=== PATIENT | female | born 1985 | race Caucasian/White ===

== ENCOUNTER → 2017-09-11 | Outpatient (CLI) | payer OTHER | LOC: M SMT 10:01 | PROVIDERS: ATTEND Advanced Practice Midwife | DX: Z31.438 Encounter for other genetic testing of female for procreative management (principal) ==

== ENCOUNTER → 2017-10-02 | Outpatient (CLI) | payer OTHER | LOC: M LRY 08:31 | DX: Z36.89 Encounter for other specified antenatal screening (principal); Z3A.20 20 weeks gestation of pregnancy | CPT/HCPCS: 76811 ==

== ENCOUNTER → 2017-10-26 | Outpatient (CLI) | payer OTHER | LOC: M LRY 08:30 | DX: Z36.2 Encounter for other antenatal screening follow-up (principal); Z3A.22 22 weeks gestation of pregnancy ==

== ENCOUNTER → 2017-11-10 | Outpatient (CLI) | payer OTHER ==
[2017-11-10 14:34] LABS: HEMATOCRIT 36.6 % (36.0-47.0); HEMOGLOBIN 12.4 g/dl (12.0-16.0); MEAN CORPUSCULAR HEMOGLOBIN 31.6 pg (27.0-33.0); MEAN CORPUSCULAR HGB CONC 33.9 g/dl (32.0-36.5); MEAN CORPUSCULAR VOLUME 93.1 fl (80.0-96.0); PLATELET COUNT, AUTOMATED 222 10^3/uL (150-450); RED BLOOD COUNT 3.93 10^6/uL (4.00-5.40); RED CELL DISTRIBUTION WIDTH 12.5 % (11.5-14.5); WHITE BLOOD COUNT 8.2 10^3/uL (4.0-10.0)
[2017-11-10 15:06] LABS: GLUCOSE CHALLENGE TEST 1 HOUR 115 MG/DL (LESS THAN 140)
== END ==
LOC: M SMT 08:23
DX: Z34.82 Encounter for supervision of other normal pregnancy, second trimester (principal)

== ENCOUNTER → 2018-01-20 | Outpatient (REF) | payer OTHER | LOC: M LAB REF 13:06 | DX: Z34.83 Encounter for supervision of other normal pregnancy, third trimester (principal); Z3A.00 Weeks of gestation of pregnancy not specified | CPT/HCPCS: 87186 ==

== ENCOUNTER 2018-02-11 01:04 | Inpatient (IN) | payer OTHER ==
[2018-02-11] MEDS: LR 1,000 ML IV (03:07)
[2018-02-11] MEDS: PENICILLIN G POTASSIUM IV 5 MU in D5W MINI-BAG PLUS 100 ML IV (03:07)
[2018-02-11 03:29] LABS: HEMATOCRIT 36.9 % (36.0-47.0); HEMOGLOBIN 12.7 g/dl (12.0-15.5); MEAN CORPUSCULAR HEMOGLOBIN 31.7 pg (27.0-33.0); MEAN CORPUSCULAR HGB CONC 34.4 g/dl (32.0-36.5); PLATELET COUNT, AUTOMATED 208 10^3/uL (150-450); RED BLOOD COUNT 4.01 10^6/uL (4.00-5.40); RED CELL DISTRIBUTION WIDTH 12.9 % (11.5-14.5); WHITE BLOOD COUNT 19.8 10^3/uL (4.0-10.0)
[2018-02-11] MEDS ORDERED: OXYTOCIN 30 UNITS IN 0.9% NaCl 500ML IV BAG (J2590) As Ordered (03:44)
[2018-02-11] MEDS ORDERED: ACETAMINOPHEN 500 MG TAB As Ordered (04:07)
[2018-02-11] MEDS ORDERED: PENICILLIN G POTASSIUM IV 2.5 MU in APPROPRIATE DILUENT 1 EA IV (07:30)
[2018-02-11] MEDS ORDERED: DIBUCAINE 1% OINTMENT 30GM TOP (10:15)
[2018-02-11] MEDS ORDERED: MEASLES,MUMPS,RUBELLA VACCINE INJ (MMR-II) (90707) SC (10:15)
[2018-02-11] MEDS ORDERED: ONDANSETRON 4MG/2ML VIAL (J2405) IV (10:15)
[2018-02-11] MEDS ORDERED: METHYLERGONOVINE MALEATE 0.2 MG TAB PO (10:15)
[2018-02-11] MEDS ORDERED: RHOGAM 300 MCG (1500 IU) INJ (J2790) IM (10:15)
[2018-02-11] MEDS ORDERED: DOCUSATE SODIUM 100 MG CAP PO (10:15)
[2018-02-11] MEDS ORDERED: OXYTOCIN DRIP 30 UNITS in APPROPRIATE DILUENT 1 EA IV (10:30)
[2018-02-11] MEDS: IBUPROFEN 800 MG TAB PO ×2 (13:54→22:46)
[2018-02-11] MEDS: ACETAMINOPHEN 500 MG TAB PO (16:18)
[2018-02-12] MEDS: ACETAMINOPHEN 500 MG TAB PO ×2 (01:05→08:31)
[2018-02-12] MEDS: IBUPROFEN 800 MG TAB PO (06:38)
[2018-02-12] MEDS: PRENATAL VITAMINS CHEWABLE TABLET PO (08:30)
== END 2018-02-12 17:40 | disposition home or self-care (01) | DRG 775 ==
LOC: M LDO 01:04 → M LDI 02:56 → M OBS 08:14
PROVIDERS: Obstetrics & Gynecology
PROC: 10E0XZZ Delivery of Products of Conception, External Approach (ICD-10-PCS; principal; 2018-02-11)
DX: O99.824 Streptococcus B carrier state complicating childbirth (principal); Z3A.39 39 weeks gestation of pregnancy; O69.82X0 Labor and delivery complicated by other cord entanglement, without compression, not applicable or unspecified; Z37.0 Single live birth

== ENCOUNTER → 2018-04-15 | Outpatient (REF) | payer OTHER ==
[2018-04-15 21:06] LABS: CHLAMYDIA DNA AMPLIFICATION NEGATIVE (NEGATIVE); GC DNA AMPLIFICATION NEGATIVE (NEGATIVE)
== END ==
LOC: M LAB REF 16:58
DX: Z30.430 Encounter for insertion of intrauterine contraceptive device (principal)

== ENCOUNTER → 2019-01-06 | Outpatient (REF) | payer OTHER ==
[~2019-01-06] MED LIST: CALC-190 PO; IBUP-1114 PO; MAPA500T2 PO; PRENTAB9 PO
== END ==
LOC: M LAB REF 17:16
PROVIDERS: ATTEND Physician Assistant
DX: N30.00 Acute cystitis without hematuria (principal); B96.20 Unspecified Escherichia coli [E. coli] as the cause of diseases classified elsewhere

== ENCOUNTER → 2019-01-24 | Outpatient (CLI) | payer OTHER ==
[2019-01-26 14:11] LABS: FREE CORTISOL 24HR URINE 24 ug/24 hr (6-42); FREE CORTISOL URINE 16 ug/L (Undefined); METANEPHRINE TOTAL URINE 74 ug/L (Undefined); METANEPHRINE URINE 111 ug/24 hr (45-290); NORMETANEPHRINE TOTAL URINE 85 ug/L (Undefined); NORMETANEPHRINE URINE 128 ug/24 hr (82-500)
== END ==
LOC: M LAB 09:04
PROVIDERS: ATTEND Internal Medicine Endocrinology, Diabetes & Metabolism
DX: D35.01 Benign neoplasm of right adrenal gland (principal)